=== PATIENT | female | born 1995 | race Caucasian/White ===

== ENCOUNTER 2017-08-13 14:04 | Emergency (ER) | payer MEDICAID ==
[~2017-08-13] VITALS: Ht 157.5 cm; Wt 95.0 kg
[2017-08-13 14:11] VITALS: Ht 157.5 cm; Wt 95.0 kg
[2017-08-13 15:56] LABS: BASOPHILS % 0.3 % (0.0-2.0); EOSINOPHILS # 0.1 10^3/ul (0.0-0.5); EOSINOPHILS % 0.9 % (0.0-7.0); HEMATOCRIT 42.7 % (37.0-47.0); HEMOGLOBIN 14.5 g/dl (12.0-16.0); LYMPHOCYTES # 2.8 10^3/ul (0.8-2.9); LYMPHOCYTES % 20.8 % (15.0-51.0); MEAN CORPUSCULAR HEMOGLOBIN 29.1 pg (29.0-33.0); MEAN CORPUSCULAR VOLUME 85.7 fl (82.0-101.0); MEAN PLATELET VOLUME 10.3 fl (7.4-10.4); MONOCYTE # 0.7 10^3/ul (0.3-0.9); MONOCYTES % 4.8 % (0.0-11.0); NEUTROPHILS % 72.8 % (39.0-77.0); PLATELET COUNT 367 10^3/UL (140-415); RED BLOOD COUNT 4.98 10^6/ul (4.20-5.40); RED CELL DISTRIBUTION WIDTH 12.6 % (11.5-14.5); WHITE BLOOD COUNT 13.7 10^3/ul (4.8-10.8)
--- NOTE | 2017-08-13 16:03 | RADRPT ---
PROCEDURE: US OB. CLINICAL INDICATION: Vaginal bleeding TECHNIQUE: Transabdominal and transvaginal pelvic ultrasound are performed. COMPARISON: None. FINDINGS: The uterus is normal in echogenicity and anteverted in orientation. No focal fibroids are identifi ed. Within the endometrial canal, gestational sac with normal double decidual reaction is identifie d. pole and yolk sac are seen. The crown-rump length measures 1.58 cm corresponding to an jackie mated age of 8 weeks 2 days. Positive cardiac activity detected rate - 73 beats per minute. Th ere is a tiny subchorionic hemorrhage measuring 1.2 x 0.7 cm. Both ovaries are identified, and normal in size, shape, and appearance. No solid or complex adnexal masses seen.. Normal Doppler flow is noted of both ovaries. The right ovary measures 3.4 x 1.7 x 2.7 cm, and the left ovary measures 3.6 x 1.9 x 2.1 cm There is no free fluid in the pelvis IMPRESSION: 1. Single live intrauterine of approximately 8 weeks 2 days. 2. Positive cardiac activity identified. 3. Small subchorionic hemorrhage measuring 1.2 x 0.7 x 1.1 cm. 4. No complex or solid adnexal masses. 5. No free fluid in the pelvis RPTAT: HH .Rishabh Hanson MD, MD Date Time Electronically viewed and signed by .Rishabh Hanson MD, MD on 08/13/2017 16:03 .W/
[2017-08-13 16:19] LABS: ADD UMIC YES; UR ASCORBIC ACID NEGATIVE (NEGATIVE); UR BACTERIA FEW /HPF (NONE SEEN); UR BILIRUBIN (Dip) NEGATIVE (NEGATIVE); UR BLOOD (Dip) 3+ mg/dL (NEGATIVE); UR CLARITY SLIGHTLY CLOUDY (CLEAR); UR COLOR YELLOW (YELLOW); UR GLUCOSE (Dip) NEGATIVE (NEGATIVE); UR KETONES (Dip) NEGATIVE (NEGATIVE); UR LEUKOCYTE ESTERASE (Dip) 2+ Leu/ul (NEGATIVE); UR MUCUS FEW /HPF (NONE SEEN); UR NITRITE (Dip) NEGATIVE (NEGATIVE); UR RBC 3 /HPF (0-5); UR SPECIFIC GRAVITY (Dip) 1.014 (1.003-1.030); UR SQUAMOUS EPITHELIAL CELL FEW /HPF (FEW); UR TOTAL PROTEIN (Dip) 1+ mg/dl (NEGATIVE); UR UROBILINOGEN (Dip) NEGATIVE (NEGATIVE)
[2017-08-13] MEDS ORDERED: CEPH-443 PO (17:33)
--- NOTE | 2017-08-13 17:48 | ERD ---
ER Documentation Chief Complaint Chief Complaint Sent from OB for eval Vag bleed HPI 22-year-old female patient with no significant past medical history is currently is a and presents to the ED complaining of vaginal spotting that occurred earlier today. States that she has some lower pelvic pain and describes as cramp like. States that she has also passing blood clots. Denies passing any blood tissue. Reports that her MARKETING COMPLIANCE MANAGER is Dr. Herman. Denies any chest pain, shortness of breath, nausea, vomiting, diarrhea. Reports that she is unsure of the exact date of her last menstruation. ROS All systems reviewed and are negative except as per history of present illness. Medications Home Meds Active Scripts Cephalexin* (Keflex*) 500 Mg Capsule, 500 MG PO QID for 7 Days, CAP Prov:TL POLO PA-C 08/13/17 Allergies Allergies: Coded Allergies: morphine (Verified Allergy, Intermediate, 08/13/17) PMhx/Soc Medical and Surgical Hx: pt denies Medical Hx, pt denies Surgical Hx Hx Alcohol Use: No Hx Substance Use: No Hx Tobacco Use: No Physical Exam Vitals Vital Signs Date Time Temp Pulse Resp B/P Pulse Ox O2 Delivery O2 Flow Rate FiO2 08/13/17 19:13 98.2 71 20 119/64 97 Room Air 08/13/17 18:56 98.8 68 20 134/84 96 Room Air 08/13/17 14:11 99.8 101 20 141/91 96 Physical Exam Const: Brd-pjs-litpoinol, well-nourished. In no acute distress. Head: Atraumatic, normocephalic Eyes: Normal Conjunctiva without injection. No purulent discharge. ENT: Normal external ear, nose. Moist oropharynx without tonsillar exudates. Non -erythematous pharynx. Uvula midline. No drooling. No trismus. Neck: No cervical midline tenderness. Full range of motion. No meningismus. No cervical lymphadenopathy. No JVD. Resp: Clear to auscultation bilaterally. No wheezing, rhonchi, rales, or crackles. No accessory muscle use. No retractions. Cardio: Regular rate and rhythm. No murmurs, rubs or gallops. Abd: Soft, nontender, non distended. Normal bowel sounds. No palpable masses. No rebound tenderness. No guarding. Negative McBurney's point. Negative psoas sign. Negative obturator sign. Skin: No petechiae or rashes Back: No midline tenderness. No CVA tenderness. Ext: No cyanosis, or edema. Neur: Awake and alert. Normal gait. Normal coordination. Psych: Normal Mood and Affect Result Diagram: 08/13/17 1535 Results 24 hrs Laboratory Tests Test 08/13/17 15:30 08/13/17 15:35 08/14/17 13:31 Urine Color YELLOW Urine Clarity SLIGHTLY CLOUDY Urine pH 6.0 Urine Specific [place] 1.014 Urine Ketones NEGATIVEmg/dL Urine Nitrite NEGATIVEmg/dL Urine Bilirubin NEGATIVEmg/dL Urine Urobilinogen NEGATIVEmg/dL Urine Leukocyte Esterase 2+Luis Daniel/ul Urine Microscopic RBC 3/HPF Urine Microscopic WBC 14/HPF Urine Squamous Epithelial Cells FEW/HPF Urine Bacteria FEW/HPF Urine Mucus FEW/HPF Urine Hemoglobin 3+mg/dL Urine Glucose NEGATIVEmg/dL Urine Total Protein 1+mg/dl White Blood Count 13.710^3/ul Red Blood Count 4.9810^6/ul Hemoglobin 14.5g/dl Hematocrit 42.7% Mean Corpuscular Volume 85.7fl Mean Corpuscular Hemoglobin 29.1pg Mean Corpuscular Hemoglobin Concent 34.0g/dl Red Cell Distribution Width 12.6% Platelet Count 10995^3/UL Mean Platelet Volume 10.3fl Neutrophils % 72.8% Lymphocytes % 20.8% Monocytes % 4.8% Eosinophils % 0.9% Basophils % 0.3% Nucleated Red Blood Cells % 0.0/100WBC Neutrophils # 10.010^3/ul Lymphocytes # 2.810^3/ul Monocytes # 0.710^3/ul Eosinophils # 0.110^3/ul Basophils # 0.010^3/ul Nucleated Red Blood Cells # 0.010^3/ul Beta HCG, Quantitative 52356.0mIU/ml Lab Scanned Report BLOOD [id number] Procedures/MDM This is a 22-year-old female patient with no significant past medical history is G1 P 0 presents to the ED complaining of vaginal spotting and lower pelvic pain that started earlier today. Patient is afebrile. An ultrasound, beta-hCG , CBC, type and RH, UA was ordered to evaluate patient. CBC: No evidence of severe infection or anemia Urine: No elevation in nitrites, 2+leukocyte esterase, 3+ hematuria. Patient will be treated for a UTI Rh: Negative. Received Rhogam here in the ED. Dr. Herman, patient's MARKETING COMPLIANCE MANAGER was called since patient was 8 weeks and he stated that we should administer Rhogam here in the ED. beta Hc PROCEDURE: US OB. CLINICAL INDICATION: Vaginal bleeding TECHNIQUE: Transabdominal and transvaginal pelvic ultrasound are performed. COMPARISON: None. FINDINGS: The uterus is normal in echogenicity and anteverted in orientation. No focal fibroids are identified. Within the endometrial canal, gestational sac with normal double decidual reaction is identified. pole and yolk sac are seen. The crown-rump length measures 1.58 cm corresponding to an estimated age of 8 weeks 2 days. Positive cardiac activity detected rate - 73 beats per minute. There is a tiny subchorionic hemorrhage measuring 1.2 x 0.7 cm. Both ovaries are identified, and normal in size, shape, and appearance. No solid or complex adnexal masses seen.. Normal Doppler flow is noted of both ovaries. The right ovary measures 3.4 x 1.7 x 2.7 cm, and the left ovary measures 3.6 x 1.9 x 2.1 cm There is no free fluid in the pelvis IMPRESSION: 1. Single live intrauterine of approximately 8 weeks 2 days. 2. Positive cardiac activity identified. 3. Small subchorionic hemorrhage measuring 1.2 x 0.7 x 1.1 cm. 4. No complex or solid adnexal masses. 5. No free fluid in the pelvis Patient's bleeding symptoms have stabilized while in the department - small subchorionic hemorrhage noted. Pelvic rest recommended. Low suspicion for symptomatic anemia, ectopic , sepsis, PID, appendicitis, ovarian torsion, tubo-ovarian abscess, surgical abdomen, or other emergent conditions. Patient was educated that there is a risk for threatened . Diagnosis: Threatened , UTI Discharge medications: Keflex Patient to follow up with MARKETING COMPLIANCE MANAGER in 2 days for further evaluation and treatment. Patient is to return sooner to the ED for any worsening symptoms. Patient's questions were answered. Patient understood and agreed with discharge plan. Departure Diagnosis: Primary Impression: Vaginal bleeding in patient at less than 20 weeks ges... Condition: Stable Patient Instructions: If You Are Rh Negative, Urinary Tract Infections in Women , Bleeding During Early , Possible Miscarriage (Threatened ), Rho(D) Immune Globulin (Human) Solution for injection Referrals: LEISA HERMAN MD [facility] YOU HAVE RECEIVED A MEDICAL SCREENING EXAM AND THE RESULTS INDICATE THAT YOU DO NOT HAVE A CONDITION THAT REQUIRES URGENT TREATMENT IN THE EMERGENCY DEPARTMENT. FURTHER EVALUATION AND TREATMENT OF YOUR CONDITION CAN WAIT UNTIL YOU ARE SEEN IN YOUR DOCTORS OFFICE WITHIN THE NEXT 1-2 DAYS. IT IS YOUR RESPONSIBILITY TO MAKE AN APPOINTMENT FOR FOLOW-UP CARE. IF YOU HAVE A PRIMARY DOCTOR --you should call your primary doctor and schedule an appointment IF YOU DO NOT HAVE A PRIMARY DOCTOR YOU CAN CALL OUR PHYSICIAN REFERRAL HOTLINE AT IF YOU CAN NOT AFFORD TO SEE A PHYSICIAN YOU CAN CHOSE FROM THE FOLLOWING [facility] [address] [facility] [address] [facility] [address] [facility] [facility] [address] [facility] [address] [facility] [address] [facility]. [facility] [address] [facility]. [facility] YOU HAVE RECEIVED A MEDICAL SCREENING EXAM AND THE RESULTS INDICATE THAT YOU DO NOT HAVE A CONDITION THAT REQUIRES URGENT TREATMENT IN THE EMERGENCY DEPARTMENT. FURTHER EVALUATION AND TREATMENT OF YOUR CONDITION CAN WAIT UNTIL YOU ARE SEEN IN YOUR DOCTORS OFFICE WITHIN THE NEXT 1-2 DAYS. IT IS YOUR RESPONSIBILITY TO MAKE AN APPOINTMENT FOR FOLOW-UP CARE. IF YOU HAVE A PRIMARY DOCTOR --you should call your primary doctor and schedule and appointment IF YOU DO NOT HAVE A PRIMARY DOCTOR YOU CAN CALL OUR PHYSICIAN REFERRAL HOTLINE AT . IF YOU CAN NOT AFFORD TO SEE A PHYSICIAN YOU CAN CHOSE FROM THE FOLLOWING [facility]: [facility] [address] [place] [address] [facility] [address] [place] [address] [facility] [address] [place] [address] [facility] URGENT CARE/SPECIALTIES MARKETING COMPLIANCE MANAGER [place] [address] [facility] [address] [place] [address] OFFICE FAX , [facility] [address] [place] [address] [facility] [address] [place] [address] [address], [facility] [address], [address], [facility] [address] [address] [facility] [address] [place] [address] [facility] [address] [place] [address] [address] [facility] [address] - [address] SUN CARROLL [address], [facility] [address] [address], [facility] [address] [facility] [facility], [facility] [address] [address], [facility] [address] [place] [id number] [facility] Hours: 8:00 am - 5:00 pm Additional Instructions: Call your MARKETING COMPLIANCE MANAGER TOMORROW for an appointment during the next 2-3 days for further evaluation and treatment. See the doctor sooner or return here if your condition worsens before your appointment time. TL POLO PA-C Aug 13, 2017 17:48
[2017-08-13 19:13] VITALS: BP 119/64; PULSE 71; RESP 20; TEMP 98.2
== END 2017-08-13 19:15 | disposition home or self-care (01) ==
LOC: FTE 14:04
DX: O20.9 Hemorrhage in early pregnancy, unspecified (principal); R10.2 Pelvic and perineal pain; Z3A.08 8 weeks gestation of pregnancy
CPT/HCPCS: 36415; 76801; 81001; 84702; 85025; 86900; 86901; J2790; Z7502